=== PATIENT | male | born 1960 | race Caucasian/White ===

== ENCOUNTER 2019-02-19 20:57 | Observation (INO) | payer OTHER ==
[~2019-02-19] VITALS: Ht 175.3 cm; Wt 113.4 kg
[2019-02-19] MEDS ORDERED: SODIUM CHLORIDE 0.9% 1000ML 1,000 ML IV STA (23:02)
--- NOTE | 2019-02-19 23:41 | Diagnostic Imaging Report ---
EXAMINATION: PA and lateral views of the chest. COMPARISON: None CLINICAL HISTORY: Cough, shortness of breath DISCUSSION: Lines/tubes: None. Lungs: The lungs are well inflated and clear. No pneumonia or pulmonary edema. Pleura: No pleural effusion or pneumothorax. Heart and mediastinum: The cardiomediastinal silhouette is normal. Bones and soft tissues: No acute bony abnormalities. IMPRESSION: No acute cardiopulmonary abnormalities. Signed by: Dr. Shayne Bright M.D. on 02/19/2019 11:37 PM
[2019-02-20 00:07] LABS: BASOPHILS % 0.5 % (0.0-1.0); EOSINOPHILS # (AUTO) 0.1 (0.0-0.4); EOSINOPHILS % 0.8 % (0.0-6.0); HEMATOCRIT 47.4 % (38.2-49.6); HEMOGLOBIN 16.4 g/dL (14.0-18.0); LYMPHOCYTES # (AUTO) 1.9 (1.0-3.2); LYMPHOCYTES % 24.7 % (18.0-39.1); MEAN CORPUSCULAR HEMOGLOBIN 32.4 pg (28-32); MEAN CORPUSCULAR HGB CONC 34.6 g/dL (31-35); MEAN CORPUSCULAR VOLUME 93.7 fL (81-99); MONOCYTES # (AUTO) 0.5 (0.2-0.8); MONOCYTES % 6.2 % (4.4-11.3); NEUTROPHILS # (AUTO) 5.2 (2.1-6.9); NEUTROPHILS % 67.5 % (38.7-80.0); PLATELET COUNT 219 x10e3/uL (140-360); RED BLOOD COUNT 5.06 x10e6/uL (4.3-5.7); RED CELL DISTRIBUTION WIDTH 12.1 % (11.7-14.4)
[2019-02-20 00:20] LABS: INR 0.92; PROTHROMBIN TIME 12.8 seconds (11.9-14.5)
[2019-02-20 00:21] LABS: PARTIAL THROMBOPLASTIN TIME 27.5 seconds (23.8-35.5)
[2019-02-20 00:28] LABS: ALANINE AMINOTRANSFERASE 36 IU/L (0-55); ALBUMIN 3.3 g/dL (3.5-5.0); ALBUMIN/GLOBULIN RATIO 0.9 (0.8-2.0); ALKALINE PHOSPHATASE 77 IU/L (40-150); BLOOD UREA NITROGEN 9 mg/dL (7-26); BUN/CREATININE RATIO 12 (6-25); CALCIUM 9.2 mg/dL (8.4-10.2); CARBON DIOXIDE 27 mmol/L (22-29); CHLORIDE 96 mmol/L (98-107); CREATINE KINASE 79 IU/L (30-200); CREATININE, SERUM 0.76 mg/dL (0.72-1.25); EST GLOMERULAR FILTRATION RATE > 60 ML/MIN (60-); GLUCOSE 115 mg/dL (74-118); SODIUM 133 mmol/L (136-145)
[2019-02-20] MEDS ORDERED: ALBUTEROL/IPRATROPIUM 3 ML NEB NEB ONE (00:30)
[2019-02-20] MEDS ORDERED: METHYLPREDNISOLONE SOD SUCC 125 MG/2ML VIAL IV ONE (00:30)
--- OUTSIDE RECORDS SUMMARY | 2019-02-20 02:30 | XMS REPORT ---
Author Author [facility] Address Unknown Phone Unavailable Care Team Providers Care Hot Roller Name Role Phone Kait XIE Unavailable Unavailable Problems This patient has no known problems. Allergies, Adverse Reactions, Alerts This patient has no known allergies or adverse reactions. Medications This patient has no known medications. Results Test Description Test Time Test Comments Text Results Atomic Results Result Comments CHEST 2 VIEWS 2019-02-19 23:37:00 [place] [address] Patient Name: JABARI NICHOLS MR #: [id number] : 1960 Age/Sex: 58/M Req #: [id number] Adm Physician: Ordered by: DARRION XIE MD Report #: [id number] Location: ER Room/Bed: Procedure: [id number] DX/CHEST 2 VIEWS Exam Date: 02/19/19 Exam Time: 2320 REPORT STATUS: Signed EXAMINATION: PA and lateral views of the chest. COM PARISON: None CLINICAL HISTORY: Cough, shortness of breath DISCUSSION: Lines/tubes: None. Lungs: The lungs are well inflated and clear. No pneumonia or pulmonary edema. Pleura: No pleural effusion or pneumothorax. Heart and mediastinum: The cardiomediastinal silhouette is normal. Bones and soft tissues: No acute bony abnormalities. IMPRESSION: No acute cardiopulmonary abnormalities. Signed by: Dr. Cami Townsend M.D. on 02/19/2019 11:37 PM Dictated By: CAMI TOWNSEND MD 36 Transcribed By: HEIDI on 02/19/192336 COPY TO: DARRION XIE MD
[2019-02-20] MEDS: ALBUTEROL SULF 0.083% NEB SOLN 3 ML NEB NEB SCH ×6 (03:15→22:50)
[2019-02-20] MEDS ORDERED: METHYLPREDNISOLONE SOD SUCC 125 MG/2ML VIAL ONE (05:05)
[2019-02-20] MEDS: SODIUM CHLORIDE 0.9% 1000ML 1,000 ML IV SCH ×2 (05:38→13:29)
[2019-02-20] MEDS: AZITHROMYCIN 500MG/SOD CHL 0.9% 250ML BAG IV SCH (05:38)
[2019-02-20] MEDS: METHYLPREDNISOLONE SOD SUCC 40 MG/ML VIAL 1ML IV SCH ×3 (05:38→21:15)
[2019-02-20] MEDS: IPRATROPIUM BROMIDE 0.02% 2.5 ML NEB NEB SCH ×3 (07:00→19:45)
--- NOTE | 2019-02-20 07:16 | NUR ---
ASSUMED CARE AT THIS TIME. PATIENT LAYING IN BED WITH EYES CLOSED. RESP EVEN AND UNLABORED. SKIN WARM AND DRY. NO SIGNS OF ACUTE DISTRESS NOTED AT THIS TIME.
[2019-02-20 08:14] LABS: AMPHETAMINES SCREEN,URINE NEGATIVE (NEGATIVE); BENZODIAZEPINES SCREEN,URINE NEGATIVE (NEGATIVE); PHENCYCLIDINE SCREEN,URINE NEGATIVE (NEGATIVE)
--- NOTE | 2019-02-20 08:32 | NUR ---
PATIENT AWAKE AND ALERT SITTING IN BED TALKING ON CELL PHONE. NO SIGNS OF ACUTE DISTRESS NOTED AT THIS TIME. DENIES ANY C/O AT THIS TIME.
[2019-02-20] MEDS: NICOTINE 21 MG/EA PATCH TOP SCH (08:51)
[2019-02-20 12:43] VITALS: BP 151/72
[2019-02-20 13:05] VITALS: BP 151/72
[2019-02-20 13:12] VITALS: BP 151/72
[2019-02-20 16:32] VITALS: BP 154/76
--- NOTE | 2019-02-20 17:43 | Diagnostic Imaging Report ---
History: Syncope Comparison studies: None Technique: Axial images were obtained from the skull base to the vertex. Coronal and sagittal reconstructions obtained from the axial data. Dose modulation, iterative reconstruction, and/or weight based adjustment of the mA/kV was utilized to reduce the radiation dose to as low as reasonably achievable. Findings: Scalp/skull: No abnormalities. No fractures, blastic or lytic lesions. Extra-axial spaces: No masses. No fluid collections. Brain sulci: Appropriate for age. Ventricles: Normal in size and configuration. No hydrocephalus. Parenchyma: No abnormal densities. No masses, hemorrhage, acute or chronic cortical vascular insults. Sellar/suprasellar region: Partial empty sella configuration Craniocervical junction: Patent foramen magnum. No Chiari one malformation. Incidentally noted right phthisis bulbi. IMPRESSION: No intracranial abnormalities . Signed by: DR Phillip Marin M.D. on 02/20/2019 5:40 PM
[2019-02-20 20:00] VITALS: BP 137/66
[2019-02-20 20:44] VITALS: BP 137/66
--- NOTE | 2019-02-20 22:22 | History and Physical ---
PRIMARY CARE PHYSICIAN: Dr. Hema Stanton in [facility]. CHIEF COMPLAINT: Shortness of breath. HISTORY OF PRESENT ILLNESS: Mr. Mayes is a 58-year-old male who presented to the emergency room with an episode of severe coughing. According to the daughter, the patient had episodes of cough at home and he almost passed out. He does not remember the event. He denies any chest pain, nausea, vomiting. He is feeling much better now. He was wheezing and was having coughing last night. In the emergency room, he was given nebulizer treatment and he felt better. The patient has a [id number] smoking history. He denies any complaints of nausea, vomiting. He does not take any medicines on a regular basis and he has never been diagnosed formally with COPD or sleep apnea. REVIEW OF SYSTEMS: GENERAL: Denies any fever or chills. HEAD: Denies any trauma. ENT: Denies any earache. CVS: Denies any chest pain. RESPIRATORY: Shortness of breath. GI: Denies any nausea or vomiting. Rest of the review of systems are negative except as in HPI. PAST MEDICAL HISTORY: None. PAST SURGICAL HISTORY: None. FAMILY AND SOCIAL HISTORY: He has been a smoker for 45 years. PHYSICAL EXAMINATION: VITAL SIGNS: Temperature 98.3, pulse of 85, blood pressure 151/72, blood pressure when he came in was 97/61. He was given IV fluids. HEENT: Head is atraumatic, normocephalic. NECK: Supple. CHEST: Wheezing bilaterally. HEART: S1, S2 audible. ABDOMEN: Soft, nontender. EXTREMITIES: No pedal edema. NEUROLOGIC: Awake and alert. LABORATORY DATA: White count of 7000, hemoglobin 16.4, platelets 219. Chemistries within normal limits. ASSESSMENT/PLAN: Mr. Mayes is a 58-year-old male who presented to the emergency room with complaints of intractable cough and the patient almost passed out. First set of cardiac enzymes was negative. He was hypotensive in the emergency room; however, the blood pressure improved with IV hydration. His wheezing is better with nebulizer treatment. Chest x-ray, which was done in the emergency room did not show any acute cardiopulmonary disease. The patient almost had syncope. CURRENT PROBLEMS 1. Syncope possibly can be due to intractable cough, but his EKG has sinus rhythm, first troponin was negative; however, we will do two other sets of troponin. 2. Likely chronic obstructive pulmonary disease exacerbation. Continue the patient on nebulizer treatment as ordered. We will reduce the dose of Solu-Medrol. 3. Discontinue the IV fluids. MD ASHLEY Arroila/JACLYN /[id number]
[2019-02-21] VITALS: BP 130/65
--- NOTE | 2019-02-21 00:08 | Consultation ---
DATE OF CONSULTATION: Cardiology Consultation REASON FOR CONSULTATION: Syncope. HISTORY OF PRESENT ILLNESS: This is a 58-year-old man with no significant past medical history other than tobacco abuse, who presented to the emergency department after syncopal episode. The patient evidently has had a cough over the last week, that progressively worsened, [id number] in intensity, and during a coughing spell while seated, he lost consciousness. He denies any chest pain, shortness of breath, palpitations surrounding the event. Upon gnosticist of normal consciousness, he was not confused. He has no prior past cardiac history. He is currently feeling well. REVIEW OF SYSTEMS: A 12-point review of system was conducted, is negative otherwise as stated above in the HPI. PAST MEDICAL HISTORY: Tobacco abuse. PAST SURGICAL HISTORY: None recent. PAST FAMILY HISTORY: No premature coronary artery disease or cardiac . SOCIAL HISTORY: No illicit drug use or alcohol, but reports daily tobacco use. MEDICATIONS: See medications reconciliation form. ALLERGIES: NO DRUG ALLERGIES. PHYSICAL EXAMINATION: VITAL SIGNS: Temperature is 96, heart rate 72, respirations 18, blood pressure is , oxygen saturation 99% on 2 L nasal cannula. Blood pressure upon arrival to the emergency department was low at 79/55. GENERAL: He is well-appearing, in no apparent distress. Alert and oriented x3. HEAD: Normocephalic, atraumatic. EYES: Extraocular muscles are intact. Conjunctivae are clear. NECK: No JVD. No bruits. CARDIOVASCULAR: Regular rate and rhythm. No murmurs. LUNGS: Scattered wheezes bilaterally. ABDOMEN: Soft, nontender, nondistended. EXTREMITIES: No clubbing, cyanosis, or edema. IMAGING: A 12-lead electrocardiogram showed normal sinus rhythm. MEDICATIONS: Reviewed. LABORATORY VALUES: Reviewed. Troponin normal. BNP normal. Chest x-ray shows no acute cardiopulmonary abnormality. IMPRESSION: 1. Syncope, likely post-tussive. 2. Tobacco abuse. RECOMMENDATIONS: Continue current treatment plan per primary team. Place the patient on telemetry. Check a 2D echocardiogram. We will continue to follow along. DO HENRIQUE Mccauley/MODL /[id number]
[2019-02-21] MEDS: AZITHROMYCIN 500MG/SOD CHL 0.9% 250ML BAG IV SCH (01:35)
[2019-02-21] MEDS: ALBUTEROL SULF 0.083% NEB SOLN 3 ML NEB NEB SCH ×3 (02:55→11:25)
[2019-02-21] MEDS: IPRATROPIUM BROMIDE 0.02% 2.5 ML NEB NEB SCH ×2 (02:55→07:44)
[2019-02-21 04:00] VITALS: BP 123/61
[2019-02-21] MEDS: METHYLPREDNISOLONE SOD SUCC 40 MG/ML VIAL 1ML IV SCH (05:10)
[2019-02-21 05:54] LABS: BASOPHILS % 0.1 % (0.0-1.0); HEMATOCRIT 43.6 % (38.2-49.6); LYMPHOCYTES # (AUTO) 0.8 (1.0-3.2); MEAN CORPUSCULAR HEMOGLOBIN 32.6 pg (28-32); MEAN CORPUSCULAR HGB CONC 34.4 g/dL (31-35); MEAN CORPUSCULAR VOLUME 94.8 fL (81-99); MONOCYTES # (AUTO) 0.5 (0.2-0.8); MONOCYTES % 3.3 % (4.4-11.3); NEUTROPHILS % 90.9 % (38.7-80.0); PLATELET COUNT 235 x10e3/uL (140-360); RED CELL DISTRIBUTION WIDTH 11.8 % (11.7-14.4)
[2019-02-21 06:17] LABS: BLOOD UREA NITROGEN 12 mg/dL (7-26); BUN/CREATININE RATIO 15 (6-25); CALCIUM 8.8 mg/dL (8.4-10.2); CARBON DIOXIDE 26 mmol/L (22-29); CHLORIDE 96 mmol/L (98-107); CREATININE, SERUM 0.78 mg/dL (0.72-1.25); EST GLOMERULAR FILTRATION RATE > 60 ML/MIN (60-); GLUCOSE 288 mg/dL (74-118); SODIUM 129 mmol/L (136-145)
[2019-02-21 08:05] VITALS: BP 122/69
[2019-02-21 08:15] VITALS: BP 122/69
[2019-02-21] MEDS: NICOTINE 21 MG/EA PATCH TOP SCH (08:43)
--- NOTE | 2019-02-21 09:28 | NUR ---
PT IS LIVES IN HOME WITH FAMILY, NO DME IS INDEPENDENT WITH PLAN TO RETURN HOME WITH PANTERA [phone]
[2019-02-21] MEDS ORDERED: ALBUTEROL0.63 MG/3 INH (11:19)
[2019-02-21] MEDS ORDERED: PREDNISONE20 MG PO (11:22)
[2019-02-21] MEDS ORDERED: ZITHROMAX1 GM (11:24)
--- NOTE | 2019-02-21 11:50 | Progress Note ---
DATE: 02/21/2019 SUBJECTIVE: The patient denies chest pain. He reports his cough has improved. No episodes of syncope reported. OBJECTIVE: VITAL SIGNS: Temperature 96.4 degrees, pulse 91, respiratory rate 16, blood pressure 122/69, oxygen saturation 97% on 2 L nasal cannula. GENERAL: Awake, alert, no acute distress. LUNGS: Clear to auscultation bilaterally. No wheezes or crackles. CARDIOVASCULAR: Normal rate, regular rhythm. No murmur. Normal S1, S2. ABDOMEN: Soft, nontender. EXTREMITIES: No edema. CARDIAC MEDICATIONS: None. LABORATORY DATA: WBC 15.33, hemoglobin 15, hematocrit 43.6, platelets 235. Sodium 129, potassium 4, chloride 96, CO2 26, BUN 12, creatinine 0.78. Troponin 0.012. BNP 18.6. TELEMETRY: Normal sinus rhythm. IMPRESSION: 1. Syncope likely post-tussive. 2. Tobacco abuse. RECOMMENDATIONS: No evidence of arrhythmias on telemetry. Continue to monitor while patient is admitted. Continue treatment of the patient's COPD exacerbation. Echocardiogram was reviewed. The patient may follow up in the office for further evaluation. Thank you for this consult. We will continue to follow. Mora Shah MD ABS/MODL /[id number]
--- NOTE | 2019-02-21 19:21 | Discharge Summary ---
FINAL DIAGNOSES: 1. Chronic obstructive pulmonary disease exacerbation. 2. Posttussive syncope. 3. Smoker. ADMISSION HISTORY AND HOSPITAL COURSE: Mr. Mayes is a 58-year-old male, who presented with shortness of breath. His primary care physician is [facility]. He is a smoker, 45 pack years. He almost passed out with coughing and during the hospital stay, the patient was treated for COPD exacerbation with Solu-Medrol, nebulizer treatment, and azithromycin. He felt better. He will be discharged home. Cardiology consultation was called for possible syncope and they cleared the patient for discharge. Echo was normal. I did a CT of the head, which was normal as well. They will follow up with their primary care physician and for COPD, they will follow up with me. MD ASHLEY Arriola/JACLYN /[id number]
== END 2019-02-21 11:54 | disposition home or self-care (01) ==
LOC: ER 20:57 → ERHOLD 02-20 02:25 → IMCU 02-20 12:24
PROVIDERS: ADMIT Internal Medicine; ATTEND Internal Medicine
DX: J44.1 Chronic obstructive pulmonary disease with (acute) exacerbation (principal); R09.02 Hypoxemia; F17.210 Nicotine dependence, cigarettes, uncomplicated; R55 Syncope and collapse
CPT/HCPCS: 36415 ×2; 70450; 71046; 80048; 80053; 80307; 82550; 82553; 83880; 84484; 85025 ×2; 85379; 85610; 85730; 93005; 93306; 94640 ×4; 96374; 99284; G0378 ×2; J0456 ×2; J2920 ×2; J2930; J7030 ×2